=== PATIENT | female | born 1955 | race Caucasian/White ===

== ENCOUNTER → 2018-10-03 | Day surgery (SDC) | payer OTHER ==
[~2018-10-03] MED LIST: CEFTRIAXONE SOD 1 GM/NS 50 ML 50 ML IV ONE; DEXAMETHASONE SOD PHOS INJ 4 MG/ML VIAL ONE; FENTANYL CITRATE/PF 100MCG/2 ML INJ ONE; FLOMAX0.4 MG PO; HYDROCODONE/APAP 5MG-325MG TAB ONE; IOPAMIDOL 610MG/1ML 300 MG/ML VIAL IV ONE; LIDOCAINE HCL 2% LOCAL INJ 5 ML SDV VIAL INJ ONE; MAXALT10 MG PO; MEPERIDINE HCL INJ 25 MG/ML VIAL ONE; MIDAZOLAM HCL 2 MG/2 ML VIAL ONE; NORCO 5-325 TA1 EACH PO; OMEPRAZOLE40 MG PO; ONDANSETRON HCL INJ 2MG/ML 2ML 2 MG/ML VIAL ONE; ONDANSETRON HCL8 MG PO; PROPOFOL IV EMULSION 10 MG/ML 20 ML VIAL ONE; SEVOFLURANE INHAL SOLN 250 ML PEN BTL ONE; [UNRECOGNIZED DRUG - OTHER] SQ
--- OUTSIDE RECORDS SUMMARY | 2018-10-03 05:14 | XMS REPORT ---
Author Author [facility] Address Unknown Phone Unavailable Care Team Providers Care Distribution Engineer Name Role Phone Unavailable Unavailable Problems This patient has no known problems. Allergies, Adverse Reactions, Alerts This patient has no known allergies or adverse reactions. Medications This patient has no known medications.
[2018-10-03 08:35] VITALS: BP 143/76
--- NOTE | 2018-10-03 13:21 | Operative Report ---
DATE OF PROCEDURE: 10/03/2018 SURGEON: Donis Liriano MD PREOPERATIVE DIAGNOSES: 1. Ureteral calculus. 2. Microscopic hematuria. 3. Hydronephrosis. POSTOPERATIVE DIAGNOSES: 1. Ureteral calculus. 2. Microscopic hematuria. 3. Hydronephrosis. 4. Urethral stricture disease. PROCEDURES: 1. Cystourethroscopy with calibration and dilation of urethral and ureteral stricture (separate procedure for urethral stricture disease). 2. Cystourethroscopy with right ureter catheterization and right retrograde pyelogram (separate procedure for microscopic hematuria). 3. Left-sided ureteroscopy with laser lithotripsy (entirely separate procedure for left UPJ calculus). 4. Cystourethroscopy, basket extraction of a left renal calculus (entirely separate procedure for renal calculus with explicit purpose of sending the stone for analysis. 5. Cystourethroscopy with insertion of a left indwelling stent (entirely separate procedure for diagnosis of left hydronephrosis, not required for every laser lithotripsy. 6. Supervision of fluoroscopy for ureteroscopic and stent insertion portions. 7. Interpretation of retrograde pyelography. ANESTHESIA: General. ESTIMATED BLOOD LOSS: Minimal. COMPLICATIONS: None. INDICATIONS FOR PROCEDURE: Ms. Vela is a 63-year-old female with a history of left-sided renal colic, found to have 9 mm x 9 mm left ureteropelvic junction stone. She and I and her in the office had a long discussion about alternatives, risks, and benefits of doing nothing, cystoscopy, ureteroscopy, shock lithotripsy, stent placement, percutaneous surgery. She voiced understanding of the options, alternatives, the risks, and benefits and she elected to proceed. PROCEDURE IN DETAIL: After informed consent was obtained, the patient was taken to the operative suite, placed supine on the operating table, underwent general anesthesia by the Anesthesia Service. She was placed in the dorsal lithotomy position and sterilely prepped and draped in standard fashion for cystoscopy. A 22.5-Somali cystoscope was attempted to be inserted per urethra, this failed. The urethra was calibrated to 16-Somali, was dilated to 24-Somali. A 22.5-Somali cystoscope was inserted per urethra. Panendoscopy of the bladder revealed no tumors and no stones. Both ureteral orifices were catheterized with a 5-Somali open-ended catheter. Right was normal. The left revealed a very large 9 x 9 mm ureteropelvic junction calculus with mild hydronephrosis. A guidewire was inserted. The ureter was dilated. Ureteroscope was advanced to the level of stone. Utilizing 200 micron laser fiber, the stone was ablated, fragment was removed from the kidney and passed off the table as a specimen with the explicit purpose of stone for analysis, is not required for laser lithotripsy. At this time, a ureteral stent was deployed 6 x 26 with a coil in the renal pelvis and a coil in the bladder. A string was left and taped to the inner thigh. The bladder was drained. The patient was awakened from anesthesia and transported to the recovery room in excellent condition. Supervision of fluoroscopy interpretation ventriculography: I was present for the entire procedure and supervised fluoroscopy. There was no radiologist present. Attention was turned towards the left and right ureteral orifices which were catheterized and retrograde pyelogram was performed revealing delicate ureters, delicate pelvocaliceal systems. On the right, delicate distal ureter, a 9 x 9 mm proximal ureteral calculus, proximal hydronephrosis. Postoperative views revealed interim removal of calculus as well as placement of a stent in adequate position on the left side. Donis Liriano MD ES/MODL /[id number] cc: Donis Liriano MD
== END | disposition home or self-care (01) ==
LOC: OR 05:00
PROVIDERS: ATTEND Urology
DX: N13.2 Hydronephrosis with renal and ureteral calculous obstruction (principal); N35.92 Unspecified urethral stricture, female; I44.7 Left bundle-branch block, unspecified; I10 Essential (primary) hypertension; K44.9 Diaphragmatic hernia without obstruction or gangrene; K22.70 Barrett's esophagus without dysplasia; N28.1 Cyst of kidney, acquired; Z88.2 Allergy status to sulfonamides; Z88.8 Allergy status to other drugs, medicaments and biological substances; Z91.011 Allergy to milk products; Z91.010 Allergy to peanuts; Z01.810 Encounter for preprocedural cardiovascular examination
CPT/HCPCS: 52356; 74420; 88300; 93005; C1758; C2617; J0696; J1100; J2001; J2175; J2250; J2405; J2704; J3010; Q9967; C1788